=== PATIENT | male | born 1980 | race Caucasian/White ===

== ENCOUNTER 2020-08-21 13:27 | Emergency (ER) | payer OTHER ==
[~2020-08-21] VITALS: Ht 180.3 cm; Wt 99.8 kg
[2020-08-21] MEDS ORDERED: PROAIR HFA8.5 GM INH (14:40)
[2020-08-21] MEDS ORDERED: LOPERAMIDE 2 MG2 M1 PO (14:40)
[2020-08-21 14:57] VITALS: BP 131/70
== END 2020-08-21 14:58 | disposition home or self-care (01) ==
LOC: M.ERS 13:27
DX: R19.7 Diarrhea, unspecified (principal); Z20.822 Contact with and (suspected) exposure to COVID-19